=== PATIENT | female | born 1965 | race Caucasian/White ===

== ENCOUNTER 2025-10-07 02:16 | Observation (INO) | payer BC ==
[2025-10-07 02:37] LABS: BASOPHILS ABSOLUTE AUTO 0.1 K/mm3 (0.0-0.2); BASOPHILS PERCENT AUTO 0.7 % (0.0-1.0); EOSINOPHILS ABSOLUTE AUTO 0.6 K/mm3 (0.0-0.4); EOSINOPHILS PERCENT AUTO 4.4 % (0.0-6.0); IMMATURE GRAN ABSOLUTE AUTO 0.04 K/mm3 (0.00-0.05); IMMATURE GRAN PERCENT AUTO 0.3 % (0.0-0.4); LYMPHOCYTES ABSOLUTE AUTO 4.0 K/mm3 (1.0-4.8); LYMPHOCYTES PERCENT AUTO 31.2 % (24.0-44.0); MEAN PLATELET VOLUME 9.7 fl (9.4-12.3); MONOCYTES ABSOLUTE AUTO 1.1 K/mm3 (0.0-0.8); MONOCYTES PERCENT AUTO 8.2 % (0.0-8.0); NEUTROPHILS ABSOLUTE AUTO 7.1 K/mm3 (1.8-7.7); NEUTROPHILS PERCENT AUTO 55.2 % (41.0-71.0); NRBC ABSOLUTE 0.00 (0.00-0.02); NRBC PERCENT 0.0 % (0.0-0.2); PLATELET COUNT,PLT 312 K/mm3 (150-400); RED BLOOD CELL COUNT 5.28 M/mm3 (4.10-5.30); WHITE BLOOD CELL COUNT,WBC 12.83 K/mm3 (3.9-11.3)
[2025-10-07] MEDS: methylPREDNISolone Sodium Succinate 125 MG/2 ML SDV IVPUSH ONE (02:39)
[2025-10-07 03:01] LABS: A/G RATIO 1.0 (1-2); ALANINE AMINOTRANSFERASE,ALT 22.0 U/L (14-59); ASPARTATE AMNIOTRANSFERASE,AST 17.0 U/L (15-37); BILIRUBIN TOTAL 0.4 mg/dL (0.2-1.0); BLOOD UREA NITROGEN,BUN 15.0 mg/dL (7-18); CARBON DIOXIDE,CO2 27.0 mEq/L (21-32); CHLORIDE,CL 106.0 mEq/L (98-107); CREATINE KINASE,CK 43.0 U/L (26-192); CREATININE 1.4 mg/dL (0.55-1.02); EST CRCL DRUG DOSING (CG) 44.18 mL/min; ESTIMATED GFR 44.0 mL/min (>60); GLUCOSE RANDOM 121.0 mg/dL (70-99); POTASSIUM,K 3.9 mEq/L (3.5-5.1); PROTEIN TOTAL,TP 7.2 g/dl (6.4-8.2); SODIUM,NA 144.0 mEq/L (136-145); TROPONIN I HIGH SENSITIVITY 18.0 pg/mL (<=51)
[2025-10-07] MEDS: LORazepam 2 MG/ML SDV IVPUSH STA (04:20)
[2025-10-07 04:41] LABS: TSH 2.409 uIU/mL (0.358-3.74)
[2025-10-07] MEDS ORDERED: Ondansetron 4 MG Tab.DIS PO PRN (07:32)
[2025-10-07] MEDS ORDERED: Ondansetron 4 MG/2 ML SDV IV PRN (07:32)
[2025-10-07] MEDS: LORazepam 2 MG/ML SDV IVPUSH ONE (07:38)
[2025-10-07] MEDS: Heparin Sodium 5,000 Units/ML Vial SUBCUT SCH (08:48)
== END 2025-10-08 08:45 | disposition home or self-care (01) ==
LOC: JD.ED 02:16 → JD.MS 04:19 → JD.ICU 07:00
PROVIDERS: ADMIT Hospitalist; ATTEND Hospitalist
DX: I49.3 Ventricular premature depolarization (principal); J98.01 Acute bronchospasm; N28.9 Disorder of kidney and ureter, unspecified; I49.9 Cardiac arrhythmia, unspecified; F41.9 Anxiety disorder, unspecified; I10 Essential (primary) hypertension; E66.9 Obesity, unspecified; F17.210 Nicotine dependence, cigarettes, uncomplicated; Z88.0 Allergy status to penicillin; Z88.8 Allergy status to other drugs, medicaments and biological substances; Z68.30 Body mass index [BMI] 30.0-30.9, adult; Z79.899 Other long term (current) drug therapy
CPT/HCPCS: 36415; 71045; 80053; 82550; 83735; 83880; 84443; 84484; 85025; 93005; 93306; 94640; 94760; 96361; 96372; 96374; 96375; 96376; 99285; A9270; G0378; J0283; J1644; J2060; J2919; J3535; J7030; J7620